=== PATIENT | female | born 1985 | race Caucasian/White ===

== ENCOUNTER 2016-10-05 23:59 | Emergency (ER) | payer OTHER ==
--- NOTE | ~2016-10-05 | CT2 ---
[facility] A Service of [facility] RADIOLOGY TEXT RESULTS PATIENT: ARSLAN SHAFFER LOCATION: [place] : [birth year] UNIT #: [id number] AGE: [address]: Guy Clancy MD SEX: F ORDER DR: [id number] [facility] [address] [place], [place] [address] [id number] E MR#: [id number] Acc #: [id number] NAME: ARSLAN SHAFFER : 1985 SEX: F STUDY DATE/TIME: 10/06/2016 5:14 UNIT: [facility] ROOM: STUDY DESCRIPTION: CT Abd and Pelv W Cont Attending Physician: Guy Clancy M.D. Ordering Physician: Guy Clancy M.D. Primary Care Physician: Montez Alejandra M.D. MEDICAL IMAGING REPORT This report is preliminary unless electronic signature is present EXAM CT abdomen and pelvis with contrast, 10/06/2016 HISTORY 31-year-old female with left upper quadrant abdominal pain for 1 day. COMPARISON None TECHNIQUE Helical scan performed through the abdomen and pelvis following administration of IV contrast. Coronal and sagittal reformatted images. This CT exam was performed with one or more of the following radiation dose reduction techniques: automatic exposure control, adjustment of mA and/or kV according to patient size, and iterative reconstruction. FINDINGS Visualized lung bases are unremarkable. The liver, spleen, pancreas, gallbladder, both adrenal glands, and both kidneys are within normal limits. Abdominal aorta normal in course and caliber. No dissection. Small bowel unremarkable without obstruction. Appendix is normal. Colon unremarkable. No free fluid or free air. The urinary bladder, uterus, and both adnexa are unremarkable. No free pelvic fluid. No acute bony abnormality. IMPRESSION 1. No acute abdominal or pelvic findings. 2. Normal appendix. Dictated by... [facility] A Service [facility] RADIOLOGY TEXT RESULTS PATIENT: ARSLAN SHAFFER LOCATION: [place] : 83 UNIT #: [id number] AGE: [address]: Guy Clancy MD SEX: F ORDER DR: Alpesh Gupta M.D. THIS IS AN ELECTRONICALLY VERIFIED REPORT Alpesh Gupta M.D. at 10/07/2016 4:40 PM MANJU/[email or web address] TD: 10/06/2016 17:16 JOB #: [id number] MEDICAL IMAGING REPORT Page 1 of 1 COPY
[~2016-10-05 23:59] MED LIST: ALBUTEROL17 GM INH; AMOXIL500 MG PO; ANTIVERT PO; ATIVAN PO; BUSPAR; FIORICET W/CODE1 CAP PO; FIORICET1 TAB PO; FLEXERIL PO; FLEXERIL10 MG PO; IBUPROFEN800 MG PO; KEFLEX500 MG PO; KLONOPIN0.5 MG PO; LOPRESSOR; LOPRESSOR PO; LORTAB 10-5001 EACH PO; MEDROL PO; MEDROL4 MG/DOSE- PO; NAPROXEN PO; NO MEDICATIONS; PHENERGAN PO; PRENATAL VITAMI1 TA3 PO; ROBITUSSIN100 MG/51 PO; TAMIFLU75 M1 PO; TOPROL XL 50 MG50 MG PO; VENLAFAXINE HC150 M1 PO; VICODIN 5/500 T1 TAB PO; ZITHROMAX1 G/PKT PO; ZYRTEC10 M1 PO
[2016-10-06 00:23] LABS: URINE SOURCE CLEAN CATCH
[2016-10-06 00:31] LABS: URINE APPEARANCE CLOUDY; URINE BILIRUBIN NEG (NEG); URINE BLOOD NEG (NEG); URINE COLOR YELLOW; URINE GLUCOSE NEG (NEG); URINE KETONE NEG (NEG); URINE LEUKOCYTE ESTERASE NEG (NEG); URINE NITRATE NEG (NEG); URINE PH 5.5 (5-8); URINE PROTEIN NEG (NEG); URINE SPECIFIC GRAVITY 1.025 (1.003-1.035); URINE UROBILINOGEN 0.2 MG/DL (NEG)
[2016-10-06 00:45] LABS: AMPHETAMINE NEG (NEG); BARBITURATES NEG (NEG); BENZODIAZEPINES NEG (NEG); COCAINE NEG (NEG); MARIJUANA NEG (NEG); OPIATES NEG (NEG); TRICYCLIC ANTIDEPRESSANTS NEG (NEG); U METHADONE NEG (NEG)
[2016-10-06 00:57] LABS: CULTURE INDICATED? NO
[2016-10-06 04:00] LABS: BASOPHIL# 0.1 X10e3 (0-0.3); BASOPHIL% 0.6 % (0-2.5); EOSINOPHIL% 0.3 % (0.0-7.0); HEMOGLOBIN 13.3 gm/dL (12.0-16.0); LYMPHOCYTE# 3.3 X10e3 (1.0-3.5); LYMPHOCYTE% 28.8 % (17.0-45.0); MEAN CELL VOLUME 77.5 FL (83-96); MEAN CORPUSCULAR HEMOGLOBIN 24.5 PG (28-34); MEAN CORPUSCULAR HGB CONC 31.7 g/dL (30-36); MEAN PLATELET VOLUME 9.9 FL (6.5-11.5); MONOCYTE# 0.6 X10e3 (0-1.0); MONOCYTE% 4.9 % (3.0-12.0); NEUTROPHIL# 7.5 X10e3 (1.5-7.1); NEUTROPHIL% 65.4 % (40-75); PLATELET COUNT 317 X10e3 (140-420); RED BLOOD COUNT 5.42 X10e (3.90-5.30); RED CELL DISTRIBUTION WIDTH 14.9 % (11.0-15.5); WHITE BLOOD COUNT 11.5 X10e3 (4.0-10.5)
[2016-10-06 04:25] LABS: ALBUMIN SERUM 4.3 g/dL (3.5-5.0); BILIRUBIN,TOTAL 0.4 mg/dL (0.2-2.0); BUN/CREATININE RATIO 18.33; CALCIUM SERUM 9.6 mg/dL (8.4-10.2); CREATININE SERUM 0.6 mg/dL (0.6-1.4); GLOM FILT RATE Estimated 119.8 mL/min (>60); PROTEIN TOTAL SERUM 8.6 g/dL (6.0-8.3)
[2016-10-06 04:31] LABS: DIFF IND NO
[2016-10-29] MEDS ORDERED: METOPROLOL SUCC50 MG PO (12:32)
[2016-10-29] MEDS ORDERED: PROZAC PO (12:32)
[2016-10-29] MEDS ORDERED: KLONOPIN0.5 M3 (12:32)
== END 2016-10-06 06:50 | disposition home or self-care (01) ==
LOC: CED 23:59
PROVIDERS: Emergency Medicine; Student in an Organized Health Care Education/Training Program
DX: M54.5 Low back pain (principal); R11.2 Nausea with vomiting, unspecified; F41.9 Anxiety disorder, unspecified
CPT/HCPCS: 36415; 74177; 80053; 80307; 81003; 83690; 84703; 85025; 96374; 96375; 99284; J1885; J2405; Q9967

== ENCOUNTER 2016-10-29 12:44 | Emergency (ER) | payer OTHER ==
[~2016-10-29 12:44] MED LIST changes: +KLONOPIN0.5 M3; +METOPROLOL SUCC50 MG PO; +PROZAC PO
== END 2016-10-29 13:25 | disposition home or self-care (01) ==
LOC: SED 12:44
DX: M54.16 Radiculopathy, lumbar region (principal); I10 Essential (primary) hypertension; F41.9 Anxiety disorder, unspecified; F43.10 Post-traumatic stress disorder, unspecified
CPT/HCPCS: 99282